=== PATIENT | female | born 1960 | race Caucasian/White ===

== ENCOUNTER 2024-12-17 13:27 | Inpatient (IN) ==
--- NOTE | 2024-12-17 14:06 | XRay Report ---
XR chest 1V portable CLINICAL HISTORY: Chest pain, nonspecific COMPARISON STUDY: 06/19/2023 FINDINGS: Heart size and pulmonary vasculature are normal. No effusion, consolidation, or pneumothora x. IMPRESSION: No acute findings. ACT 112: Negative or not required by law. Electronically signed by: Jonel Garrett M.D. 12/17/2024 2:05 PM
[2024-12-17 14:19] LABS: Basophils # (auto) 0.08 K/uL (0.00-0.20); Basophils % (auto) 0.5 %; Eosinophils # (auto) 0.01 K/uL (0.00-0.50); Eosinophils % (auto) 0.1 %; Hematocrit (blood only) 43.3 % (37.0-47.0); Hemoglobin 15.3 g/dl (12.0-16.0); Immature Granulocytes # (auto) 0.09 K/uL (0.01-0.20); Immature Granulocytes % (auto) 0.6 %; Lymphocytes # (auto) 1.25 K/uL (1.20-3.40); Lymphocytes % (auto) 8.2 %; Mean Corpuscular Hemoglobin 32.1 pg (25.0-34.0); Mean Corpuscular Hgb Conc 35.3 g/dL (32.0-36.0); Mean Platelet Volume 8.2 fL (9.4-12.4); Monocytes # (auto) 0.96 K/uL (0.11-0.59); Monocytes % (auto) 6.3 %; Neutrophils # (auto) 12.93 K/uL (1.40-6.50); Neutrophils % (auto) 84.3 %; Platelet Count 289 K/uL (130-400); RDW Coefficient of Variation 13.1 % (11.5-14.5); Red Blood Count 4.76 M/uL (4.20-5.40); White Blood Count 15.32 K/ul (4.8-10.8)
--- NOTE | 2024-12-17 14:23 | Emergency Department Note ---
Impression & Plan Acute hypoxemic respiratory failure, Community acquired pneumonia, Leucocytosis ED Provider Note HISTORY OF PRESENT ILLNESS: Patient is a 64-year-old female presenting with chest pain and shortness of breath. Patient reports that yesterday she started having a dull aching pain in her left lateral chest. Reports that she felt slightly more short of breath than normal starting yesterday. Today, she woke up and states that her pain in her left lateral chest was significantly worse. She reports that it hurts when she tries to take a deep breath. She called her daughter who took her to [facility] urgent care and they called 911 to have the patient transferred to the emergency department. Patient does not wear any supplemental oxygen at baseline. Denies any recent fevers. She reports a history of COPD but states that her cough is not any worse than normal. Denies any recent fevers. Denies any DVT or PE history. She is not on any anticoagulation or antiplatelet therapy. Patient reportedly had saturations of 82% at [facility] urgent care. Patient reportedly was given IV Solu-Medrol en route with EMS and given 2 breathing treatments prehospital. ROS: as above PHYSICAL EXAM: Constitutional: Patient appears in no acute distress. HENT: Head: Normocephalic and atraumatic. Eyes: EOMI, PERRL Mouth/Throat: Mucous membranes moist. Neck: Trachea midline. Neck supple. Cardiovascular: Tachycardic with regular rhythm. No murmurs, rubs or gallops. Intact distal pulses. Pulmonary/Chest: No respiratory distress. Breath sounds clear and equal bilaterally. Slight expiratory wheezes bilaterally in the anterior lung wren. Patient has some shunted breathing. Noted to have increased work of breathing. Abdominal: Abdomen soft, no tenderness, rebound or guarding. Musculoskeletal: No edema, tenderness or deformity noted. Skin: Warm and dry. No rash, erythema, pallor or cyanosis Psychiatric: Appropriate mood and affect for situation. Neurological: Alert and keenly responsive. CN II-XII grossly intact, moving all extremities equally and fully. MDM: - Vitals signs showed hypertension and tachycardia. - History obtained via patient. History as above. - Chronic conditions affecting care: COPD - Differential diagnoses include, but are not limited to: Congestive heart failure; acute coronary syndrome; COPD/asthma exacerbation; pulmonary edema; pulmonary embolism; pneumonia; pneumothorax; viral syndrome - Order placed for continuous cardiac monitoring. At this time, monitor showed rate of 112 bpm with normal sinus rhythm, per my interpretation. - External medical records reviewed. Convenient care note from [employer] system dated today was reviewed. Patient was noted to have saturations of 82% on room air was placed on 2L nasal cannula. She was noted to be tachycardic from 120 to 130 bpm on their arrival. EMS was called for transport. - EKG image interpreted by myself showed normal sinus rhythm. Rate 117 bpm. QT 318. No acute ischemic changes. - Laboratory workup interpreted by myself showed leukocytosis (WBC 15.32); normal PT/INR; stable electrolytes; normal troponin; normal AST/ALT; normal lipase - CXR image reviewed by myself is new for pneumonia, per my interpretation. - Patient given hour long duoneb treatment in ER given her continued wheezing and increased work of breathing. - CT PE negative for PE, but noted to have what looks like early pneumonia in the right upper lobe. - IV rocephin and azithromycin ordered for antibiotic coverage. - Given the patient's new oxygen requirement in the setting of her early pneumonia, will admit to hospitalist service. - Discussion was had with case packer about patient's case and need for admission - Hospitalist consulted for admission - [facility] for further evaluation and management. ASSESSMENT AND PLAN: Diagnosis: acute hypoxic respiratory failure; community acquired pneumonia; leukocytosis Plan: admit Past Med/Surg History Problem List (Updated 12/17/24 @ 15:34 by Megha Thompson MD) Leucocytosis (Acute) Community acquired pneumonia (Acute) Acute hypoxemic respiratory failure (Acute) COVID-19 (Acute) Altered mental status (Acute 12/02/13) Hip pain (Acute) Medical History Current every day smoker Surgical History No significant past surgical history Social History Smoking Status: Current every day smoker Tobacco Type: Cigarettes Preferred Language: Turkish marital status: current occupational status: employed Feels Safe at Home: Yes Allergies Allergies Allergy/AdvReac Type Severity Reaction Status Date / Time No Known Allergies Allergy Unverified 06/19/23 20:24 Home Meds Home Medications Medication Instructions Recorded Confirmed ascorbic acid (vitamin C) 500 mg 500 mg PO DAILY 06/19/23 06/19/23 tablet (Vitamin C) cholecalciferol (vitamin D3) 50 50 mcg PO DAILY 06/19/23 06/19/23 mcg (2,000 unit) tablet (Vitamin D3) Previous Rx's Medication Instructions Recorded albuterol sulfate 90 mcg/actuation 2 puffs inhalation QID PRN 12/11/20 aerosol inhaler (Ventolin HFA) shortness of breath or wheezing #8.5 grams dexamethasone 6 mg tablet 6 mg PO DAILY #10 tabs 06/20/23 Results & Data (ED) Vital Signs Vital Signs - 24 hr 12/17/24 13:39 12/17/24 13:43 12/17/24 14:00 Temperature 37.1 C Temperature Source Oral Pulse Rate 120 H 116 H 118 H Pulse Rate [Right Finger] Pulse Rate from SpO2 Sensor 118 H Pulse Rhythm Pulse Strength [Right Finger] Respiratory Rate 24 18 Respiratory Effort / Characteristics Spontaneous Labored Respiratory Depth Respiratory Pattern Rapid/Shallow Blood Pressure 173/94 H 156/92 H Blood Pressure [Right Arm] Blood Pressure Mean 120 113 Blood Pressure Mean [Right Arm] Pulse Oximetry 93 95 Oxygen Delivery Method Room Air Nasal Cannula Oxygen Flow Rate 2 Sepsis Recent Fever Within 48 Hours No Sepsis New/Unexplained Change in Mental Status No Sepsis Action Taken by Nursing Physician Notified 12/17/24 14:04 12/17/24 14:04 12/17/24 14:04 Temperature Temperature Source Pulse Rate 115 H Pulse Rate [Right Finger] Pulse Rate from SpO2 Sensor Pulse Rhythm Regular Pulse Strength [Right Finger] Respiratory Rate 20 Respiratory Effort / Characteristics Spontaneous Labored Respiratory Depth Normal Respiratory Pattern Regular Blood Pressure Blood Pressure [Right Arm] Blood Pressure Mean Blood Pressure Mean [Right Arm] Pulse Oximetry 94 94 Oxygen Delivery Method Nasal Cannula Nasal Cannula Nasal Cannula Oxygen Flow Rate 2 2 2 Sepsis Recent Fever Within 48 Hours Sepsis New/Unexplained Change in Mental Status Sepsis Action Taken by Nursing 12/17/24 14:30 12/17/24 15:15 12/17/24 15:20 Temperature Temperature Source Pulse Rate 113 H 113 H Pulse Rate [Right Finger] 108 H Pulse Rate from SpO2 Sensor 113 H Pulse Rhythm Pulse Strength [Right Finger] Respiratory Rate 18 22 20 Respiratory Effort / Characteristics Spontaneous Short of Breath Respiratory Depth Respiratory Pattern Blood Pressure 151/93 H Blood Pressure [Right Arm] Blood Pressure Mean 112 Blood Pressure Mean [Right Arm] Pulse Oximetry 93 94 94 Oxygen Delivery Method Room Air Nasal Cannula Nasal Cannula Oxygen Flow Rate 2 2 Sepsis Recent Fever Within 48 Hours Sepsis New/Unexplained Change in Mental Status Sepsis Action Taken by Nursing 12/17/24 15:42 Temperature Temperature Source Pulse Rate Pulse Rate [Right Finger] 115 H Pulse Rate from SpO2 Sensor Pulse Rhythm Pulse Strength [Right Finger] Normal Respiratory Rate 18 Respiratory Effort / Characteristics Non-Labored Spontaneous Respiratory Depth Normal Respiratory Pattern Blood Pressure Blood Pressure [Right Arm] 141/101 H Blood Pressure Mean Blood Pressure Mean [Right Arm] 114 Pulse Oximetry 97 Oxygen Delivery Method Room Air Oxygen Flow Rate Sepsis Recent Fever Within 48 Hours Sepsis New/Unexplained Change in Mental Status Sepsis Action Taken by Nursing Laboratory Data 12/17/24 13:45 12/17/24 13:45 Lab Results 12/17/24 Range/Units 13:45 WBC 15.32 H (4.8-10.8) K/ul RBC 4.76 (4.20-5.40) M/uL Hgb 15.3 (12.0-16.0) g/dl Hct 43.3 (37.0-47.0) % MCV 91.0 (80.0-100.0) fL MCH 32.1 (25.0-34.0) pg MCHC 35.3 (32.0-36.0) g/dL RDW Std Deviation 44.0 (36.4-46.3) fL RDW Coeff of Luis 13.1 (11.5-14.5) % Plt Count 289 (130-400) K/uL MPV 8.2 L (9.4-12.4) fL Immature Gran % (Auto) 0.6 % Neut % (Auto) 84.3 % Lymph % (Auto) 8.2 % Williams % (Auto) 6.3 % Eos % (Auto) 0.1 % Baso % (Auto) 0.5 % Neut # (Auto) 12.93 H (1.40-6.50) K/uL Lymph # (Auto) 1.25 (1.20-3.40) K/uL Williams # (Auto) 0.96 H (0.11-0.59) K/uL Eos # (Auto) 0.01 (0.00-0.50) K/uL Baso # (Auto) 0.08 (0.00-0.20) K/uL Immature Gran # (Auto) 0.09 (0.01-0.20) K/uL PT 10.1 (9.0-12.0) Seconds INR 0.9 (0.9-1.1) Sodium 137 (136-145) mmol/L Potassium 4.0 (3.5-5.1) mmol/L Chloride 100 (98-107) mmol/L Carbon Dioxide 27 (21-32) mmol/L Anion Gap 10 (3-11) BUN 13 (6-23) mg/dl Creatinine 0.56 L (0.6-1.2) mg/dl Est Cr Clr Drug Dosing 90.1 ml/min eGFR 103.12 BUN/Creatinine Ratio 23.2 H (10-20) Glucose 108 H (70-99(Fasting)) mg/dl Calcium 9.1 (8.6-10.3) mg/dl Total Bilirubin 0.6 (0.2-1.0) mg/dl AST 20 (13-39) U/L ALT 13 (7-52) U/L Alkaline Phosphatase 79 (34-104) U/L Troponin I High Sens 5.1 (0-14) pg/ml Total Protein 7.7 (6.0-8.3) gm/dl Albumin 4.7 (3.4-5.0) gm/dl Globulin 3.0 (2.5-4.0) gm/dl Albumin/Globulin Ratio 1.6 (0.9-2) Lipase 21 (11-82) U/L Administered Medications Ceftriaxone Sodium (Rocephin) 2,000 mg in 50 mls @ 100 mls/hr IV NOW STA Stop: 12/17/24 15:59 Last Admin: 12/17/24 15:39 Dose: 100 mls/hr Documented By: WESLEY Discontinued Medications Albuterol (Albut/Ipratrop 3mg/0.5mg Neb 3 Ml Vial) 12 ml NEB ONE ONE; Protocol Stop: 12/17/24 14:45 Last Admin: 12/17/24 15:18 Dose: 12 ml Documented By: DONNELL Azithromycin (Azithromycin 250 Mg Tab) 500 mg PO NOW ONE Stop: 12/17/24 15:31 Last Admin: 12/17/24 15:38 Dose: 500 mg Documented By: WESLEY Ioversol (Optiray 320 125ml) 89 ml IV ONCE ONE Stop: 12/17/24 15:08 Last Admin: 12/17/24 15:07 Dose: 89 ml Documented By: PLW Imaging Data Radiologist's Impression: Chest CTA 12/17/24 13:43 CT angio chest PE protocol CT DOSE: 394.29 mGy.cm HISTORY: PE. TECHNIQUE: Multiple CTA images of the chest were obtained after the intravenous administration of 90 ml Optiray. Coronal and sagittal MIPS were obtained from the axial data set and were submitted for review. All measurements were obtained according to NASCET criteria. A dose lowering technique was utilized adhering to the principles of ALARA. COMPARISON STUDY: 06/19/2023 FINDINGS: There are mild secretions in a few lower lobe bronchi bilaterally. There is mild emphysema. There is no pulmonary consolidation or pleural effusion. There is an interval small area of patchy groundglass opacity anterior medial right upper lobe with morphology consistent with a small area of early pneumonia. No enlarged adenopathy. No pericardial effusion. There are coronary artery and aortic calcifications. No thoracic aortic dissection or aneurysm. No pulmonary embolism. There are mild thoracic spine degenerative changes. IMPRESSION: 1. No pulmonary embolism seen. 2. Small area of early pneumonia at the right upper lobe. ACT 112: Negative or not required by law. The above report was generated using voice recognition software. It may contain grammatical, syntax or spelling errors. Electronically signed by: Jonel Garrett M.D. 12/17/2024 3:26 PM Chest X-Ray 12/17/24 13:44 XR chest 1V portable CLINICAL HISTORY: Chest pain, nonspecific COMPARISON STUDY: 06/19/2023 FINDINGS: Heart size and pulmonary vasculature are normal. No effusion, consolidation, or pneumothorax. IMPRESSION: No acute findings. ACT 112: Negative or not required by law. Electronically signed by: Jonel Garrett M.D. 12/17/2024 2:05 PM Discharge Plan Visit Data Chief Complaint: Shortness of Breath/Dyspnea Stated Complaint: CHEST PAIN, SOB ED Provider: Megha Thompson Discharge Problem: Acute hypoxemic respiratory failure, Community acquired pneumonia, Leucocytosis Condition: Fair Forms Stand Alone Forms: [facility] [employer] Prescriptions Prescriptions: No Action albuterol sulfate [Ventolin HFA] 90 mcg/actuation HFA aerosol inhaler 2 puffs INH QID PRN (Reason: shortness of breath or wheezing) Qty: 8.5 0RF ascorbic acid (vitamin C) [Vitamin C] 500 mg Tablet 500 mg PO DAILY cholecalciferol (vitamin D3) [Vitamin D3] 50 mcg (2,000 unit) Tablet 50 mcg PO DAILY dexamethasone 6 mg tablet 6 mg PO DAILY Qty: 10 0RF Referrals Referrals: Jose Salvador MD [Primary Care Provider] -
[2024-12-17 14:35] LABS: Albumin Globulin Ratio 1.6 (0.9-2); Albumin Level 4.7 gm/dl (3.4-5.0); BUN Creatinine Ratio 23.2 (10-20); Bilirubin,Total 0.6 mg/dl (0.2-1.0); Calcium 9.1 mg/dl (8.6-10.3); Creatinine Clr Calc Pharmacy 90.1 ml/min; Total Protein 7.7 gm/dl (6.0-8.3)
[2024-12-17 14:39] LABS: Troponin I High Sensitivity 5.1 pg/ml (0-14)
[2024-12-17 14:46] LABS: INR 0.9 (0.9-1.1); Prothrombin Time 10.1 Seconds (9.0-12.0)
[2024-12-17] MEDS: OPTIRAY 320 125ml IV ONE (15:07)
[2024-12-17] MEDS: ALBUT/IPRATROP 3MG/0.5MG NEB 3 ML VIAL NEB ONE (15:18)
--- NOTE | 2024-12-17 15:27 | CT Scan Report ---
CT angio chest PE protocol CT DOSE: 394.29 mGy.cm HISTORY: PE. TECHNIQUE: Multiple CTA images of the chest were obtained after the intravenous administration of 90 ml Optiray. Coronal and sagittal MIPS were obtained from the axial data set and were submitted for r eview. All measurements were obtained according to NASCET criteria. A dose lowering technique was ut ilized adhering to the principles of ALARA. COMPARISON STUDY: 06/19/2023 FINDINGS: There are mild secretions in a few lower lobe bronchi bilaterally. There is mild emphysema. There is no pulmonary consolidation or pleural effusion. There is an interval small area of patchy g roundglass opacity anterior medial right upper lobe with morphology consistent with a small area of e gerardo pneumonia. No enlarged adenopathy. No pericardial effusion. There are coronary artery and aortic calcifications. No thoracic aortic dissection or aneurysm. No pulmonary embolism. There are mild tho racic spine degenerative changes. IMPRESSION: 1. No pulmonary embolism seen. 2. Small area of early pneumonia at the right upper lobe. ACT 112: Negative or not required by law. The above report was generated using voice recognition software. It may contain grammatical, syntax o r spelling errors. Electronically signed by: Jonel Garrett M.D. 12/17/2024 3:26 PM
[2024-12-17] MEDS: AZITHROMYCIN 250 MG TAB PO ONE (15:38)
[2024-12-17] MEDS: cefTRIAXone SODIUM 2,000 MG/50 ML BAG IV STA (15:39)
--- NOTE | 2024-12-17 15:55 | History & Physical Report ---
Date of Service December 17, 2024 Assessment & Plan (1) Hypoxia: (2) Community acquired pneumonia: (3) COPD exacerbation: (4) Sepsis: (5) Current every day smoker: Plan This is a 64 yr old F who has a significant PMH of COPD and prediabetes who presents to ED 2/2 worsening SOB and Left sided chest pain. #Hypoxia - pt was 82% at urgent care, currently sating normally in ED after multiple rounds of nebulizer treatments #Community acquired PNA #COPD Exac #Sepsis - meets 2/2 leukocytosis and tachycardia admit to [facility] tele CTA showing concern for developing RUL PNA Continue ceftriaxone 2g daily and Azithromycin continue 250mg daily for additional 4 days IV methylprednisolone 40mg BID Levalbuterol/ipratropium q6hr (pt tachycardic) muccinex, flutter valve, ISP budesonide nebs BID, continue trelegy would recommend pt establish with pulmonary given severity of COPD obtain resp biofire #Left sided chest pain suspect msk as sx reproducible lidocaine patch, tylenol prn repeat trop for completeness, if trop rises would check echo #Tobacco abuse nicotine patch ordered encourage smoking cessation DVT ppx: SQ Lovenox FULL CODE PCP: Jose Salvador MD Dispo: admit to [facility] tele Pt was seen and examined in collaboration with Dr. Steward, please see addendum I spent a total of 50 minutes coordinating, documenting and providing care for this patient excluding time spent in the performance of separately billed services or time spent by another provider/QHP. History of Present Illness Chief Complaint: SOB x 1 day. Primary Care Provider: Jose Salvador MD This is a 64 yr old F who presents to the ED 2/2 worsening SOB. Her daughter is at bedside who helps elicit history. She has a significant PMH of COPD and tobac co abuse. She initially went to urgent care 2/2 L sided chest pain. The pain is located on the left side. Her sx started yesterday a little bit, but this morning he pain was severe. She had pain with deep breathing and at rest. She also has a cough. SHe is productive white/clear sputum. When she got urgent care her oxygen saturations were in the 80s. Daughter reports when she picked her up she was extremely short of breath. No recent illness or travel. Pt lives alone. She denies any f/c/s, dizziness, lightheaded, hemoptysis, n/v/d, abd pain, change in her bowel/urinary habits. SHe does feel lightheaded when she can't catch her breath. She denies any hx of CAD. She is still having chest pain on the left side and its constant. She describes it as constant. Currently she is smoking 1/2 ppd. Allergies Allergy/AdvReac Type Severity Reaction Status Date / Time No Known Allergies Allergy Unverified 12/17/24 15:55 Home Medications Medication Instructions Recorded Confirmed Type ascorbic acid (vitamin C) 500 mg 500 mg PO DAILY 06/19/23 12/17/24 History tablet (Vitamin C) cholecalciferol (vitamin D3) 50 50 mcg PO DAILY 06/19/23 12/17/24 History mcg (2,000 unit) tablet (Vitamin D3) albuterol sulfate 90 mcg/actuation 2 puffs inhalation Q4 PRN DYSPNEA 12/17/24 12/17/24 History aerosol inhaler (Ventolin HFA) OR WHEEZING fluticasone fur. 100 mcg-umeclid 1 inh inhalation QAM 12/17/24 12/17/24 History 62.5 mcg-vilant 25 mcg inhalat.powder (Trelegy Ellipta) ibuprofen 200 mg capsule 600 mg PO Q6H PRN DIRECTED 12/17/24 12/17/24 History Past Med/Surg History Problem List (Updated 12/17/24 @ 16:17 by Siobhan Calle PA-C) Sepsis COPD exacerbation Hypoxia Leucocytosis (Acute) Community acquired pneumonia (Acute) Acute hypoxemic respiratory failure (Acute) COVID-19 (Acute) Altered mental status (Acute 12/02/13) Hip pain (Acute) Medical History Pre-diabetes COPD (chronic obstructive pulmonary disease) Current every day smoker Surgical History No significant past surgical history Family History (Updated 12/17/24 @ 15:54 by Siobhan Calle PA-C) Mother Cervical cancer Grandmother (Maternal) Stroke Diabetes Social History Smoking Status: Current every day smoker Tobacco Type: Cigarettes Preferred Language: Croatian marital status: current occupational status: employed Feels Safe at Home: Yes Review of Systems Review of Systems: All systems reviewed & are unremarkable except as noted in HPI & below Physical Exam Physical Exam: please refer to Dr. Steward addendum for physical exam findings Results & Data Results & Data Vital Signs (Past 12 Hours) Vital Signs Temp Pulse Pulse Resp BP BP Pulse Ox 12/17/24 15:42 115 H 18 141/101 H 97 12/17/24 15:20 108 H 20 94 12/17/24 15:15 113 H 22 94 12/17/24 14:30 113 H 18 151/93 H 93 12/17/24 14:04 94 12/17/24 14:04 12/17/24 14:04 115 H 20 94 12/17/24 14:00 118 H 18 156/92 H 95 12/17/24 13:43 116 H 12/17/24 13:39 37.1 C 120 H 24 173/94 H 93 O2 Del Method O2 Flow Rate 12/17/24 15:42 Room Air 12/17/24 15:20 Nasal Cannula 2 12/17/24 15:15 Nasal Cannula 2 12/17/24 14:30 Room Air 12/17/24 14:04 Nasal Cannula 2 12/17/24 14:04 Nasal Cannula 2 12/17/24 14:04 Nasal Cannula 2 12/17/24 14:00 Nasal Cannula 2 12/17/24 13:43 12/17/24 13:39 Room Air Laboratory Results I have independently reviewed and interpreted patient's admitting labs including CBC, CMP, PT/INR, mag and troponin. Diagnostic Findings Chest CTA 12/17/24 13:43 CT angio chest PE protocol CT DOSE: 394.29 mGy.cm HISTORY: PE. TECHNIQUE: Multiple CTA images of the chest were obtained after the intravenous administration of 90 ml Optiray. Coronal and sagittal MIPS were obtained from the axial data set and were submitted for review. All measurements were obtained according to NASCET criteria. A dose lowering technique was utilized adhering to the principles of ALARA. COMPARISON STUDY: 06/19/2023 FINDINGS: There are mild secretions in a few lower lobe bronchi bilaterally. There is mild emphysema. There is no pulmonary consolidation or pleural effusion. There is an interval small area of patchy groundglass opacity anterior medial right upper lobe with morphology consistent with a small area of early pneumonia. No enlarged adenopathy. No pericardial effusion. There are coronary artery and aortic calcifications. No thoracic aortic dissection or aneurysm. No pulmonary embolism. There are mild thoracic spine degenerative changes. IMPRESSION: 1. No pulmonary embolism seen. 2. Small area of early pneumonia at the right upper lobe. ACT 112: Negative or not required by law. The above report was generated using voice recognition software. It may contain grammatical, syntax or spelling errors. Electronically signed by: Jonel Garrett M.D. 12/17/2024 3:26 PM Chest X-Ray 12/17/24 13:44 XR chest 1V portable CLINICAL HISTORY: Chest pain, nonspecific COMPARISON STUDY: 06/19/2023 FINDINGS: Heart size and pulmonary vasculature are normal. No effusion, consolidation, or pneumothorax. IMPRESSION: No acute findings. ACT 112: Negative or not required by law. Electronically signed by: Jonel Garrett M.D. 12/17/2024 2:05 PM Medications Administered Medication List Discontinued Medications Albuterol (Albut/Ipratrop 3mg/0.5mg Neb 3 Ml Vial) 12 ml NEB ONE ONE; Protocol Stop: 12/17/24 14:45 Last Admin: 12/17/24 15:18 Dose: 12 ml Documented By: DONNELL Azithromycin (Azithromycin 250 Mg Tab) 500 mg PO NOW ONE Stop: 12/17/24 15:31 Last Admin: 12/17/24 15:38 Dose: 500 mg Documented By: WESLEY Ceftriaxone Sodium (Rocephin) 2,000 mg in 50 mls @ 100 mls/hr IV NOW STA Stop: 12/17/24 15:59 Last Admin: 12/17/24 15:39 Dose: 100 mls/hr Documented By: WESLEY Ioversol (Optiray 320 125ml) 89 ml IV ONCE ONE Stop: 12/17/24 15:08 Last Admin: 12/17/24 15:07 Dose: 89 ml Documented By: RABIAW ECG Additional Comments: I have independently reviewed and interpreted patient's admitting EKG which revealed: ST 117 qtc 443ms biatrial enlargement COVID-19 Results Results COVID-19 Adm Lab Results: RBC 4.76 M/uL (4.20-5.40) 12/17/24 WBC 15.32 K/ul (4.8-10.8) H 12/17/24 Hgb 15.3 g/dl (12.0-16.0) 12/17/24 Hct 43.3 % (37.0-47.0) 12/17/24 Plt Count 289 K/uL (130-400) 12/17/24 Neutrophils (%) (Auto) 84.3 % 12/17/24 Lymphocytes (%) (Auto) 8.2 % 12/17/24 Monocytes # (Auto) 0.96 K/uL (0.11-0.59) H 12/17/24 Immature Granulocyte % (Auto) 0.6 % 12/17/24 Neutrophils # (Auto) 12.93 K/uL (1.40-6.50) H 12/17/24 Lymphocytes # (Auto) 1.25 K/uL (1.20-3.40) 12/17/24 Monocytes # (Auto) 0.96 K/uL (0.11-0.59) H 12/17/24 Basophils # (Auto) 0.08 K/uL (0.00-0.20) 12/17/24 Immature Granulocyte # (Auto) 0.09 K/uL (0.01-0.20) 5 Na 137 mmol/L (136-145) 12/17/24 K 4.0 mmol/L (3.5-5.1) 12/17/24 Cl 100 mmol/L (98-107) 12/17/24 CO2 27 mmol/L (21-32) 12/17/24 Anion Gap 10 (3-11) 12/17/24 BUN 13 mg/dl (6-23) 12/17/24 Creatinine 0.56 mg/dl (0.6-1.2) L 12/17/24 BUN/Creatinine Ratio 23.2 (10-20) H 12/17/24 Glucose Level 108 mg/dl (70-99(Fasting)) H 12/17/24 Ca 9.1 mg/dl (8.6-10.3) 12/17/24 Total Bilirubin 0.6 mg/dl (0.2-1.0) 12/17/24 AST/SGOT 20 U/L (13-39) 12/17/24 ALT/SGPT 13 U/L (7-52) 12/17/24 Alkaline Phosphatase 79 U/L (34-104) 12/17/24 Total Protein 7.7 gm/dl (6.0-8.3) 12/17/24 Albumin 4.7 gm/dl (3.4-5.0) 12/17/24 Globulin 3.0 gm/dl (2.5-4.0) 12/17/24 Albumin/Globulin Ratio 1.6 (0.9-2) 12/17/24 INR 0.9 (0.9-1.1) 12/17/24 Adenovirus (PCR) Not Detected (NotDetected) 12/17/24 B. parapertussis DNA (PCR) Not Detected (NotDetected) 01/06 B. pertussis DNA (PCR) Not Detected (NotDetected) 12/17/24 C. pneumoniae DNA (PCR) Not Detected (NotDetected) Coronavirus Type OC43 (PCR) Not Detected (NotDetected) 01/06 Coronavirus Type HKU1 (PCR) Not Detected (NotDetected) 01/06 Coronavirus Type 229E (PCR) Not Detected (NotDetected) 01/06 COVID-19 PCR Not Detected (NotDetected) 12/17/24 Coronavirus Type NL63 (PCR) Not Detected (NotDetected) 01/06 Human Metapneumovirus (PCR) Not Detected (NotDetected) 01/06 Influenza Virus Type A (PCR) Not Detected (NotDetected) Influenza Virus Type B (PCR) Not Detected (NotDetected) M. pneumoniae (PCR) Not Detected (NotDetected) 12/17/24 Parainfluenza Type 1 (PCR) Not Detected (NotDetected) 01/06 Parainfluenza Type 2 (PCR) Not Detected (NotDetected) 01/06 Parainfluenza Type 3 (PCR) Not Detected (NotDetected) 01/06 Parainfluenza Type 4 (PCR) Not Detected (NotDetected) 01/06 RSV (PCR) Not Detected (NotDetected) 12/17/24 Enterovirus/Rhinovirus (PCR) Not Detected (NotDetected) Chest X-Ray 12/17/24 Code Status & VTE Plan Code Status FULL CODE VTE Prophylaxis Plan VTE Prophylaxis will be ordered: Yes Supervising Physician Co-Signing Physician Notes Patient is a 64-year-old female with history of COPD, tobacco use disorder, prediabetes and other medical problems presents with history of worsening shortness of breath, left-sided chest pain sharp, nonradiating, associated with cough and occasional sputum which has been gradually worsening since 2 to 3 days duration. She was found to be hypoxic in 80s at urgent care and was advised to go to ED for further evaluation. Patient admits to continue to smoke about half pack per day. She is on Trelegy for COPD which she has been using. Please review HPI for complete details of presentation. I personally reviewed blood work and imaging studies. Noted leukocytosis 15.3 2K, troponin x 2 negative. BioFire negative. Chest CTA showed no PE, showed findings suggestive of right upper lobe pneumonia. Physical Exam: Vitals signs as noted above General Appearance:Moderately built and nourished, no apparent distress Head: normocephalic, Atraumatic Eyes: normal inspection, EOMI Neck: supple, Trachea midline Respiratory/Chest: Decreased breath sounds, b/l wheezing, rhonchi, No accessory muscle use Cardiovascular: S1, S2, No murmur, tachycardia Abdomen/GI:Soft, Non tender, Bowel sounds present Extremities/Musculoskeletal:normal inspection, no edema Neurologic/Psych:AAOX3, grossly no focal neurological deficits Skin: normal color, warm Acute respiratory failure with hypoxia Community-acquired pneumonia Acute COPD exacerbation Sepsis secondary to above Ongoing tobacco use disorder Sinus tachycardia Agree with IV antibiotics, steroids, nebs Supplemental oxygen as needed to keep saturations 88 to 92% 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 I have reviewed t he advanced practitioner's documentation on the date of service referred in note and agree with plan. Patient's care is coordinated with Siobhan Calle PA-C. Please refer to the documentation above for details of patient's presentation and for discussion of other issues. I spent a total [id number] coordinating, documenting, and providing care for this patient excluding time spent in the performance of separately billed services or time spent by another provider/QHP.
[2024-12-17] MEDS: LIDOCAINE 5% 1 PATCH TD SCH (16:21)
[2024-12-17] MEDS: NICOTINE 14 MG/24 HR PATCH TD SCH (16:21)
[2024-12-17] MEDS: KETOROLAC TROMETHAMINE 15 MG/ML VIAL IV ONE (16:21)
[2024-12-17] MEDS: methylPREDNISolone 125 MG/2 ML VIAL IV STA (16:31)
[2024-12-17 17:00] LABS: Appearance Urine Clear (Clear); Bacteria Urine Automated None Seen (None Seen); Bilirubin Urine Negative (Negative); Blood Urine 2+ (Negative); Cast Urine Automated 0-2 /lpf (0-2); Color Urine Yellow; Epithelial Cell Urine Auto 0-2 /hpf (0-2); Glucose Urine UA Negative (Negative); Ketones Urine 1+ (Negative); Leukocyte Esterase Urine Negative (Negative); Nitrite Urine Negative (Negative); Protein Urine Negative (Negative); Specific Gravity Urine > 1.045 (1.000-1.030); Urobilinogen Urine Negative (Negative); WBC Urine Automated 0-5 /hpf (0-5); pH Urine 5.5 (4.5-7.5)
[2024-12-17 17:05] LABS: Adenovirus PCR Not Detected (NotDetected); Bordetella parapertussis PCR Not Detected (NotDetected); Bordetella pertussis PCR Not Detected (NotDetected); Chlamydia pneumoniae PCR Not Detected (NotDetected); Coronavirus 229E PCR Not Detected (NotDetected); Coronavirus CoV-2 (COVID19)PCR Not Detected (NotDetected); Coronavirus HKU1 PCR Not Detected (NotDetected); Coronavirus NL63 PCR Not Detected (NotDetected); Coronavirus OC43PCR Not Detected (NotDetected); Human Metapneumovirus PCR Not Detected (NotDetected); Influenza A PCR Not Detected (NotDetected); Influenza B PCR Not Detected (NotDetected); Mycoplasma pneumoniae PCR Not Detected (NotDetected); Parainfluenza Virus 1 PCR Not Detected (NotDetected); Parainfluenza Virus 2 PCR Not Detected (NotDetected); Parainfluenza Virus 3 PCR Not Detected (NotDetected); Parainfluenza Virus 4 PCR Not Detected (NotDetected); Respiratory Syncytial VirusPCR Not Detected (NotDetected); Rhinovirus/Enterovirus PCR Not Detected (NotDetected)
[2024-12-17] MEDS ORDERED: MELATONIN 3 MG TAB PO PRN (18:05)
[2024-12-17] MEDS ORDERED: POLYETHYLENE (MIRALAX) 17 GM PACK PO PRN (18:05)
[2024-12-17] MEDS ORDERED: FAMOTIDINE 20 MG TAB PO PRN (18:05)
[2024-12-17] MEDS ORDERED: ONDANSETRON INJ 2 MG/ML 2 ML VIAL IV PRN (18:05)
[2024-12-17] MEDS ORDERED: LABETALOL HCL IV 5 MG/ML 20ML IV PRN (18:05)
[2024-12-17] MEDS: BUDESONIDE 0.5 MG/2 ML VIAL (PULMICORT) NEB SCH (19:39)
[2024-12-17] MEDS: IPRATROPIUM BROMIDE NEB SOLN 0.02% 0.5MG/2.5ML VIAL NEB SCH (19:39)
[2024-12-17] MEDS: LEVALBUTEROL 1.25 MG/3 ML NEB NEB SCH (19:45)
--- OUTSIDE RECORDS SUMMARY | 2024-12-17 20:24 | External Medical Summary | Summary of Care ---
Author Name Unknown Organization [facility] Address [address] [place] [address] Phone [phone] Care Team Providers Care Layout Man Name Role Phone MadeleineJose MD Primary Care Provider [phone] Encounter Details Date Type Department Care Team (Late st Contact Info) Description 10/17/2024 Orders Only PATIENT PORTAL DO NOT DELETE THIS DEPT USED BY [place] [id number] Allergies No known active allergiesdocumented as of this encounter (statuses as of 10/17/2024) Medications Vitamin D Maintenance THERAPY PACK Oral Take by mouth daily. Active Vitamin C 500 MG Oral Capsule Take 500 mg by mouth daily. Active Ibuprofen 200 MG Oral Capsule Take 3 Capsules by mouth every 6 hours as needed. Active Albuterol Sulfate HFA 108 (90 Base) MCG/ACT Inhalation Aerosol SolutionIndicati ons:COPD, severe (HCC) Inhale 2 Puffs by mouth every 4 hours as needed for Dyspnea (wheezing). 54 g 3 5 Active Fluticasone-Umec lidin-Vilant 100-62.5-25 MCG/ACT Aerosol Powder Breath Activated (Trelegy Ellipta)Indicati ons:COPD, severe (HCC) Inhale 1 Puff by mouth in the morning. 60 Blister Dosing Unit 11 5 Active documented as of this encounter (statuses as of 10/17/2024) Active Problems Problem Noted Date Diagnosed Date COPD, severe 10/10/2024 Tobacco use 10/10/2024 Fibrocystic breast 11/09/2012 Female genital symptoms 08/04/1999 Overview (05/16/2017): ICD-10 update of inactive term ABN PAP SMEAR-CERVIX 08/04/1999 Menstruation, irregular 07/21/1999 Endometriosis 07/21/1999 HERPETIC GINGIVOSTOMAT 07/21/1999 Other acne 07/21/1999 documented as of this encounter (statuses as of 10/17/2024) Resolved Problems Problem Noted Date Diagnosed Date Resolved Date ADVANCE DIRECTIVE INFORMATION 11/15/2006 06/18/2024 Overview (11/15/2006): No, Advance Directive brochure given to patient. documented as of this encounter (statuses as of 10/17/2024) Immunizations Name Administration Dates Next Due PPD 06/27/2023,08/28/2019 Pneumococcal Conjugate Vaccine, 20-valent (Prevn ar20) 03/16/2023 Pneumococcal Polysaccharide PPV23 (Pneumovax) Seasonal Influenza Vac., MDV, IM, 0.5 mL (Fluzon e) 06/09/2010 Seasonal Influenza, PF, 6 M & above, IM , (FluLaval or Fluzone) 06/27/2023,08/28/2019 TDAP (age 10 and older)(Boostrix) 04/02/2019 TDAP, Age 7 and older, IM (Adacel) 10/07/2011 Zoster Vaccine Recombinant (Shingrix) 05/17/2023 ,03/16/2023 documented as of this encounter Social History Tobacco Use Types Packs/Day Years Used Date Smoking Tobacco: Every Day Cigarettes 0.5 44 Smokeless Tobacco: Never Alcohol Use Standard Drinks/Week Comments Yes 0 (1 standard drink = 0.6 oz pur e alcohol) occ PHQ-2 Answer Date Recorded PHQ Adult Total Score 0 10/10/2024 Hunger Vital Sign Answer Date Recorded Worried About Running Out of Food in the Last Ye ar Never true 08/28/2019 Ran Out of Food in the Last Year Never true 08/28/2019 Comments No Sex and Gender Information Value Date Recorded Sex Assigned at Not on file Legal Sex Female 5:15 AM EST Gender Identity Not on file Sexual Orientation Not on file 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 on file Not on file Not on file documented as of this encounter Plan of Treatment Upcoming Encounters Date Type Department Care Team (Late st Contact Info) Description 11/13/2024 12:00 PM EDT Imaging Radiology [facility] [place] [address] [place] [phone] 10/11/2025 1:20 PM EST Office Visit [facility] [place] Kyaar Mcfarland [address] [place] [phone] DecemberJose MD [address] [place] [id number] Scheduled Procedures Name Priority Associated Diagnoses Date/Ti me COLONOSCOPY FLEXIBLE PROXIMAL DIAGNOSTIC Recall History of colon polyps Health Maintenance Due Date Last Done Comments DISCUSS TOBACCO CESSATION (REFER TO SMARTSET #2460) 1962 Alpha-1 Antitrypsin 1980 O2 ASSESSMENT COMPLETED IN PAST YEAR FOR COPD 1980 HPV/Co-Test 1992 Fecal Occult Blood Test 12/09/2007 Sigmoidoscopy 12/09/2007 Lung Cancer Screening 2012 Cervical Cancer Screening 04/12/2017 Pap Smear 04/12/2017 04/12/2014, 04/15, 03/26/2009, Additional history exists Mammogram 04/05/2024 04/05/2023, 03/15, 05/29/2016, Additional history exists COVID-19 Vaccine ( season) 2024 Influenza Vaccine (FLU shot) (#1) 2024 06/27/2023, 08/28/2019, 06/09/2010 Cologuard 04/05/2025 04/05/2022, 03/15, 03/29/2022 Depression Screening 10/10/2025 10/10/2024 Colonoscopy 04/27/2027 04/27/2022, 04/27/2022 Colorectal Cancer Screening 04/27/2027 Lipid Panel 03/16/2028 03/16/2023, 04/27/2012 DTap/Tdap Vaccines (3 - Td or Tdap) 04/02/2029 04/02/2019, 10/07/2011, 07/21/1999 Hepatitis B Vaccine Completed 06/29/2000, 01/26/2000, 12/22/1999 RETIRED - COLONOSCOPY-EVERY 5 YRS AGES 18-100 Discontinued 04/27/2022, 04/27/2022 Pneumococcal Vaccine: 50+ Years Completed 03/16/2023, 03/26/2009 Zoster Vaccines Completed 05/17/2023, 03/16/2023 HPV (Gardasil) Vaccine Aged Out No lo nger eligible based on patient's age to complete this topic MENINGOCOCCAL (MENACTRA/MENVEO) Aged Out No longer eligible based on patient's age to complete this topic Meningitis B Vaccine (Bexsero/Trumemba) Aged Out No longer eligible based on patient's age to complete this topic documented as of this encounter Medical Devices Not on filedocumented as of this encounter Care Teams Layout Man Relationship Specialty Start Date End Date December, Jose Remy MD [address] [facility] [place] [id number] PCP - General Family Medicine 06/27/23 documented as of this encounter
--- OUTSIDE RECORDS SUMMARY | 2024-12-17 20:24 | External Medical Summary | Summary of Care ---
Author Name Unknown Organization [facility] Address [address] [place] [address] Phone [phone] Care Team Providers Care Funeral Home Attendant Name Role Phone DecemberJose MD Primary Care Provider [phone] Reason for Visit * Reason Comments Follow Up Med check Encounter Details Date Type Department Care Team ([facility] st Contact Info) Description 10/10/2024 10:40 AM EST Office Visit [facility] [place] [address] [facility] [place] [address] DecemberJose MD [address] [place], [place] [id number] COPD, severe (HCC)*; Tobacco use; Prediabetes; History of tobacco use; Encounter for screening mammogram for malignant neoplasm of breast; Screening for depression; Screening for lipid disorders; Screening for deficiency anemia; Encounter for routine preventive care for patient older than 28 days Allergies No known active allergiesdocumented as of this encounter (statuses as of 10/10/2024) Medications Vitamin D Maintenance THERAPY PACK Oral [...] 60 Blister Dosing Unit 11 5 Active Albuterol Sulfate HFA 108 (90 Base) MCG/ACT Inhalation Aerosol SolutionIndicati ons:Acute URI,Acute bronchitis, antibiotics not indicated INHALE 2 PUFFS BY MOUTH EVERY 4 HOURS NEEDED FOR WHEEZING OR DYSPNEA. 54 g 1 4 10/10/19 25 Discontinu ed(Refill) Anoro Ellipta 62.5-25 MCG/ACT Inhalation Aerosol Powder Breath Activated (umeclidinium-vi lanterol)Indicat ions:COPD, severe (HCC) INHALE 1 PUFF BY MOUTH IN THE MORNING 60 Each 3 4 10/10/19 25 Discontinu ed(Medicat ion/Dose Changed) documented as of this encounter (statuses as of 10/10/2024) Active Problems Problem Noted Date Diagnosed Date COPD, severe 10/10/2024 Tobacco use 10/10/2024 Fibrocystic breast 11/09/2012 Female genital symptoms 08/04/1999 Overview (05/16/2017): ICD-10 update of inactive term ABN PAP SMEAR-CERVIX 08/04/1999 Menstruation, irregular 07/21/1999 Endometriosis 07/21/1999 HERPETIC GINGIVOSTOMAT 07/21/1999 Other acne 07/21/1999 documented as of this encounter (statuses as of 10/10/2024) Resolved Problems Problem Noted Date Diagnosed Date Resolved Date ADVANCE DIRECTIVE INFORMATION 11/15/2006 06/18/2024 Overview (11/15/2006): No, Advance Directive brochure given to patient. 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 on file Not on file Not on file documented as of this encounter Last Filed Vital Signs Vital Sign Reading Time Taken Comments Blood Pressure 136/79 10/10/2024 10:47 AM EST Pulse 58 10/10/2024 10:47 AM EST Temperature 36.9 °C (98.4 °F) 10/10/2024 10:[address] Respiratory Rate 16 10/10/2024 10:47 AM EST Oxygen Saturation - - Inhaled Oxygen Concentration - - Weight 60.3 kg (133 lb) 10/10/2024 10:47 AM EST Height - - Body Mass Index 24.01 08/30/2023 11:34 AM EST documented in this encounter Progress Notes * Jose Salvador MD - 10/10/2024 10:45 AM EST Images from the original note were not included. Subjective Moris Reyes is a 63 year old female that presents for Follow Up (Med check ) History of Present Illness The patient, with COPD, presents for a yearly physical. She has COPD and recently underwent a pulmonary function test, which confirmed the diagnosis. She uses Anoro Ellipta as a daily inhaler but finds it ineffective, preferring her albuterol rescue inhaler for immediate relief. She takes Anoro Ellipta every morning but initially hesitated to continue due to perceived lack of efficacy. She experiences shortness of breath, particularly when climbing stairs, and notes that mornings are challenging. She sometimes wakes up in the middle of the night dueto breathing difficulties and has tried sleeping propped up but prefers her left side. She occasionally uses Mucinex to help with mucus clearance, which she finds helpful. She smokes about half a pack of cigarettes a day, with some variation depending on stress at work. 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. She takes vitamin C, vitamin D, and ibuprofen regularly. No significant mood issues. Objective Vitals: 10/10/24 1047 Temp: 98.4 °F (36.9 °C) Pulse: 58 Resp: 16 BP: 136/79 Physical Exam VITALS: BP- 136/79 CHEST: Wheezing and distance breathing sounds. Physical Exam Vitals reviewed. Constitutional: General: She is not in acute distress. HENT: Nose: No congestion or rhinorrhea. Eyes: General: No scleral icterus. Pupils: Pupils are equal, round, and reactive to light. Cardiovascular: Rate and Rhythm: Normal rate and regular rhythm. Heart sounds: No murmur heard. Pulmonary: Effort: Pulmonary effort is normal. No respiratory distress. Breath sounds: Wheezing and rhonchi present. Abdominal: General: There is no distension. Palpations: Abdomen is soft. Tenderness: There is no abdominal tenderness. Musculoskeletal: Cervical back: Neck supple. Lymphadenopathy: Cervical: No cervical adenopathy. Skin: General: Skin is warm and dry. Findings: No rash. Neurological: General: No focal deficit present. Mental Status: She is alert. I have reviewed the following results: Results DIAGNOSTIC Pulmonary function test: Chronic Obstructive Pulmonary Disease (COPD) Assessment and Plan Assessment & Plan Chronic Obstructive Pulmonary Disease (COPD): Severe COPD confirmed by pulmonary function test. Patient reports better relief with rescue inhaler (Albuterol) compared to Anoro Ellipta. Discussed the importance of daily inhaler for long- term management and prevention of exacerbations. -Discontinue Anoro Ellipta. -Start Trelegy Ellipta (generic if affordable), one inhalation daily. -Continue Albuterol as rescue inhaler. -Consider referral to pulmonology if no improvement with new inhaler. Tobacco Use: Patient continues to smoke approximately half a pack per day. -Encourage smoking cessation. General Health Maintenance: -Order mammogram, last one due in May. -Order low-dose CT scan for lung cancer screening. -Order labs for blood sugar check, last checked in 2012. -Continue Vitamin C, Vitamin D, and occasional Mucinex as needed. -Ensure patient has received flu shot. COPD, severe (HCC) (Primary) - Albuterol Sulfate HFA 108 (90 Base) MCG/ACT Inhalation Aerosol Solution; Inhale 2 Puffs by mouth every 4 hours as needed for Dyspnea (wheezing). - Bclfheodjax-Abenxfzuh-Bxgbqw 100-62.5-25 MCG/ACT Aerosol Powder Breath Activated (Trelegy Ellipta); Inhale 1 Puff by mouth in the morning. Tobacco use Prediabetes - COMPREHENSIVE METABOLIC PANEL; Future; Expected date: 10/10/2024 - HEMOGLOBIN A1C; Future; Expected date: 10/10/2024 History of tobacco use - LUNG CANCER EDU. Encounter for screening mammogram for malignant neoplasm of breast - MAMMOGRAM SCREENING RAMESH BILATERAL; Future; Expected date: 10/10/2024 Screening for depression - DEPRESSION SCREENING PERFORMED Screening for lipid disorders - LIPID PANEL WITH DIRECT LDL IF TG IS HIGH; Future; Expected date: 10/10/2024 Screening for deficiency anemia - CBC; Future; Expected date: 10/10/2024 Encounter for routine preventive care for patient older than 28 days Wrap-Up Follow Up: Return in about 1 year (around 10/10/2025) for yearly physical. | For: yearly physical | Check-out note: Please help schedule yearly physical, lung cancer screening, mammogram. Jose Salvador MD Text in this note was generated using an [employer] documentation service. I discussed the use of a device to record and summarize our discussion today. All persons present during the encounter consented to its use. documented in this encounter Nursing Notes * Tomeka Solorio LPN - 10/10/2024 10:47 AM EST The patient has been properly identified by confirmation of name and date of . Chief Complaint Patient presents with Follow Up Med check documented in this encounter Plan of Treatment Upcoming Encounters Date Type Department Care Team (Late st Contact Info) Description 11/13/2024 12:00 PM EDT Imaging Radiology [address] [place] [phone] 10/11/2025 1:20 PM EST [facility] [address] [phone] December, Jose Remy MD [address] [place] [id number] Scheduled Orders Name Type Priority Associated Diagnoses Orde r Schedule MAMMOGRAM SCREENING RAMESH BILATERAL Medical Imaging Routine Encounter for screening mammogram for malignant neoplasm of breast Expected: 10/10/2024, Expires: 11/07/2025 LIPID PANEL WITH DIRECT LDL IF TG IS HIGH Lab Routine Screening for lipid disorders Expected: 10/10/2024, Expires: 10/10/2025 COMPREHENSIVE METABOLIC PANEL Lab Routine Prediabetes Expected: 10/10/2024 (Approximate), Expires: 10/10/2025 CBC Lab Routine Screening for deficiency anemia Expected: 10/10/2024 (Approximate), Expires: 10/10/2025 HEMOGLOBIN A1C Lab Routine Prediabetes Expected: 10/10/2024 (Approximate), Expires: 10/10/2025 Scheduled Procedures Name Priority Associated Diagnoses Date/Ti me COLONOSCOPY FLEXIBLE PROXIMAL DIAGNOSTIC Recall History of colon polyps Health Maintenance Due Date Last Done Comments DISCUSS TOBACCO CESSATION (REFER TO SMARTSET #[id number]) 1960 Alpha-1 Antitrypsin 1980 O2 ASSESSMENT COMPLETED [...] Not on filedocumented as of this encounter Visit Diagnoses Diagnosis COPD, severe (HCC)- Primary Chronic airway obstruction, not elsewhere classified Tobacco use Tobacco use disorder Prediabetes Other abnormal glucose History of tobacco use Personal history of tobacco use, presenting hazards to health Encounter for screening mammogram for malignant neoplasm of breast Other screening mammogram Screening for depression Screening for lipid disorders Screening for deficiency anemia Screening for other and unspecified deficiency anemia Encounter for routine preventive care for patient older than 28 days documented in this encounter Care Teams Funeral Home Attendant Relationship Specialty Start Date End Date December, Jose Remy MD [address] [id number] PCP - General Family Medicine 06/27/23 documented as of this encounter"
[2024-12-17] MEDS: methylPREDNISolone 40 MG in SYRINGE 0 ML IV SCH (20:29)
[2024-12-17] MEDS: guaiFENesin 600 MG TABCR PO SCH (20:29)
[2024-12-17] MEDS: ENOXAPARIN INJ 40 MG/0.4 ML SYR SQ SCH (20:29)
[2024-12-17] MEDS ORDERED: methylPREDNISolone 125 MG/2 ML VIAL IV SCH (21:00)
[2024-12-18] MEDS: LEVALBUTEROL HCL 0.63 MG/3 ML NEB ONE (00:42)
--- NOTE | 2024-12-18 04:38 | Electrocardiogram Report ---
Test Reason : Blood Pressure : */* mmHG Vent. Rate : 117 BPM Atrial Rate : 117 BPM P-R Int : 152 ms QRS Dur : 78 ms QT Int : 318 ms P-R-T Axes : 85 90 75 degrees QTcB Int : 443 ms Sinus tachycardia Biatrial enlargement Rightward axis Abnormal ECG When compared with ECG of 19-Jun-2023 18:28, No significant change was found Confirmed by Tk Jackson ([id number]) on 12/18/2024 4:37:46 AM Referred By: REFERRED SELF Confirmed By: Tk Jackson
[2024-12-18] MEDS: ACETAMINOPHEN 325 MG TAB PO PRN (06:18)
[2024-12-18 06:28] LABS: Basophils # (auto) 0.02 K/uL (0.00-0.20); Basophils % (auto) 0.2 %; Hematocrit (blood only) 40.6 % (37.0-47.0); Hemoglobin 14.1 g/dl (12.0-16.0); Immature Granulocytes # (auto) 0.05 K/uL (0.01-0.20); Immature Granulocytes % (auto) 0.4 %; Lymphocytes # (auto) 0.71 K/uL (1.20-3.40); Lymphocytes % (auto) 5.5 %; Mean Corpuscular Hemoglobin 31.5 pg (25.0-34.0); Mean Corpuscular Hgb Conc 34.7 g/dL (32.0-36.0); Mean Corpuscular Volume 90.8 fL (80.0-100.0); Mean Platelet Volume 8.2 fL (9.4-12.4); Monocytes # (auto) 0.63 K/uL (0.11-0.59); Monocytes % (auto) 4.9 %; Neutrophils # (auto) 11.46 K/uL (1.40-6.50); Platelet Count 261 K/uL (130-400); RDW Coefficient of Variation 13.2 % (11.5-14.5); RDW Standard Deviation 44.2 fL (36.4-46.3); Red Blood Count 4.47 M/uL (4.20-5.40); White Blood Count 12.87 K/ul (4.8-10.8)
[2024-12-18 06:53] LABS: BUN Creatinine Ratio 29.6 (10-20); Calcium 9.2 mg/dl (8.6-10.3); Creatinine Clr Calc Pharmacy 85.4 ml/min; Magnesium 2.1 mg/dl (1.7-2.4); Potassium 4.3 mmol/L (3.5-5.1)
[2024-12-18] MEDS: AZITHROMYCIN 250 MG TAB PO SCH (08:09)
[2024-12-18] MEDS: ASCORBIC ACID 500 MG TAB PO SCH (08:09)
[2024-12-18] MEDS: CHOLECALCIFEROL 25 MCG (1000 UNITS) TAB PO SCH (08:09)
[2024-12-18] MEDS: UMECLIDINIUM/VILANTEROL 62.5/25MCG 7 PUFFS/INHALER INH SCH (08:12)
[2024-12-18] MEDS: FLUTICASONE FUROATE 200MCG 14 PUFFS/INHALER INH SCH (08:12)
[2024-12-18] MEDS ORDERED: NON-FORMULARY MEDICATION (Fluticasone-Umeclidin-Vilanter [Trelegy Ellipta] 100-62.5-25 mcg INH SCH (09:00)
[2024-12-18] MEDS: cefTRIAXone SODIUM 2,000 MG/50 ML BAG IV SCH (11:19)
[2024-12-18] MEDS ORDERED: IPRATROPIUM BROMIDE NEB SOLN 0.02% 0.5MG/2.5ML VIAL NEB SCH (13:00)
--- NOTE | 2024-12-18 13:03 | Hospitalist Progress Note ---
Date of Service December 18, 2024 Assessment & Plan (1) Hypoxia: (2) Community acquired pneumonia: (3) COPD exacerbation: (4) Sepsis: (5) Current every day smoker: Plan This is a 64 yr old F who has a significant PMH of COPD and prediabetes who presents to ED 2/2 worsening SOB and Left sided chest pain. #Hypoxia - pt was 82% at urgent care, currently sating normally at rest but drops to 85-86% with activity. #Community acquired PNA #COPD Exac #Sepsis - meets 2/2 leukocytosis and tachycardia admitted to [facility] tele CTA showing concern for developing RUL PNA. Resp biofire neg. Continue ceftriaxone 2g daily and Azithromycin continue 250mg daily IV methylprednisolone 40mg BID -- to prednisone daily, wheezing and breath sounds improved. c/w duonebs muccinex, flutter valve, ISP continue trelegy would recommend pt establish with pulmonary given severity of COPD, PFT in 6 weeks of discharge. #Left sided chest pain suspect msk as sx reproducible, trop trends neg. EKG w/ sinus tach. lidocaine patch, tylenol prn #Tobacco abuse: nicotine patch ordered, encourage smoking cessation DVT ppx: SQ Lovenox FULL CODE PCP: Jose Salvador MD Dispo: likely dc robina, consider 2 step step prior to dc. Admission and Anticipated Discharge Date Admission Date: December 17, 2024 Subjective Patient was seen and examined at bedside. Patient was sitting up in chair, on room air, NAD, resting comfortably. Patient reports improving cough, now with clear sputum. Patient reports eating okay, has been afebrile. Patient desaturated to 85-86% while walking in the hallway per RN. Physical Exam Physical Exam: General Appearance: Moderately built and nourished, no apparent distress Head: normocephalic, Atraumatic Eyes: normal inspection, EOMI Neck: supple, Trachea midline Respiratory/Chest: CTA breath sounds, no wheezing, rhonchi, No accessory muscle use Cardiovascular: S1, S2, No murmur, tachycardia Abdomen/GI:Soft, Non tender, Bowel sounds present Extremities/Musculoskeletal:normal inspection, no edema Neurologic/Psych:AAOX3, grossly no focal neurological deficits Skin: normal color, warm Results & Data Results & Data Vital Signs (Past 12 Hours) Vital Signs Temp Pulse Pulse Resp BP Pulse Ox O2 Del Method 12/18/24 11:34 36.3 C L 87 18 149/88 H 92 Room Air 12/18/24 10:13 Room Air 12/18/24 08:22 101 H 20 90 Room Air 12/18/24 08:07 36.5 C 97 H 17 138/82 95 Room Air 12/18/24 07:22 93 H 16 98 Nasal Cannula 12/18/24 05:32 84 12/18/24 03:33 36.8 C 87 18 143/80 H 96 Nasal Cannula O2 Flow Rate 12/18/24 11:34 12/18/24 10:13 12/18/24 08:22 12/18/24 08:07 12/18/24 07:22 2 12/18/24 05:32 12/18/24 03:33 3
[2024-12-18] MEDS: ALBUT/IPRATROP 3MG/0.5MG NEB 3 ML VIAL NEB SCH (13:27)
[2024-12-19 06:43] LABS: Hematocrit (blood only) 37.4 % (37.0-47.0); Mean Corpuscular Hemoglobin 31.9 pg (25.0-34.0); Mean Corpuscular Hgb Conc 34.8 g/dL (32.0-36.0); Mean Corpuscular Volume 91.9 fL (80.0-100.0); Mean Platelet Volume 8.4 fL (9.4-12.4); Platelet Count 224 K/uL (130-400); RDW Coefficient of Variation 13.5 % (11.5-14.5); Red Blood Count 4.07 M/uL (4.20-5.40)
[2024-12-19 07:09] LABS: BUN Creatinine Ratio 39.7 (10-20); Calcium 8.4 mg/dl (8.6-10.3); Creatinine Clr Calc Pharmacy 73.2 ml/min
[2024-12-19] MEDS: predniSONE 20 MG TAB PO SCH (07:49)
[2024-12-19 12:28] VITALS: PULSE 90; RESP 16; TEMP 98.2; O2SAT 93
--- NOTE | 2024-12-19 12:51 | Hospitalist Progress Note ---
Date of Service December 19, 2024 Assessment & Plan (1) Hypoxia: (2) Community acquired pneumonia: (3) COPD exacerbation: (4) Sepsis: (5) Current every day smoker: Plan This is a 64 yr old F who has a significant PMH of COPD and prediabetes who presents to ED 2/2 worsening SOB and Left sided chest pain. #Hypoxia - pt was 82% at urgent care, currently sating normally at rest but drops to 85-86% with activity. #Community acquired PNA #COPD Exac #Sepsis - meets 2/2 leukocytosis and tachycardia Admitted to [facility] tele CTA showing concern for developing RUL PNA. Resp biofire neg. Has been on I/V ceftriaxone 2g daily and Azithromycin continue 250mg daily IV methylprednisolone 40mg BID -- to prednisone daily, wheezing and breath sounds improved. c/w duonebs muccinex, flutter valve, ISP Continue trelegy Would recommend pt establish with pulmonary given severity of COPD, PFT in 6 weeks of discharge. Has been feeling much better without any symptoms at rest She has been saturating normally on room air and passed the 2 steps O2 saturation test She was strongly advised to quit smoking She has been ambulating in the hallway without any difficulties and will be discharged home this afternoon #Left sided chest pain suspect msk as sx reproducible, trop trends neg. EKG w/ sinus tach. lidocaine patch, tylenol prn Denies any more chest pain and/or palpitation and no shortness of breath at rest #Tobacco abuse: nicotine patch ordered, encourage smoking cessation Again stressed on quitting smoking DVT ppx: SQ Lovenox FULL CODE PCP: Jose Salvador MD Dispo: likely dc robina, consider 2 step step prior to dc. Has had 2 steps O2 saturation test and the patient will not need any oxygen on discharge Admission and Anticipated Discharge Date Admission Date: December 17, 2024 Subjective 12/19/2024 The patient was seen and examined in medical telemetry unit She has been feeling much better She is not requiring oxygen at rest and she passed 2 steps O2 saturation test Wants to go home and she will be discharged home this afternoon Review of Systems Review of Systems: All systems reviewed and are unremarkable except as noted below Physical Exam Physical Exam: Sitting on a chair without any acute distress Constitutional: well developed, well nourished and average body habitus; not ill appearing Eyes: PERRL, conjunctivae normal, anicteric sclerae ENMT: external ear and nose normal, oropharynx normal Neck: trachea midline, no thyromegaly Respiratory: no respiratory distress Auscultation: + diminished lung sounds, + crackles ( minimal crackles) and + wheezes ( minimal wheezing) Cardiovascular: Rate/Rhythm: regular rate and regular rhythm; not tachycardic Heart Sounds: normal S1 and normal S2; no murmur Extremities: no edema Gastrointestinal (Abdomen): Inspection/Auscultation: normal bowel sounds; abdomen not distended Percussion/Palpation: abdomen soft; abdomen nontender Musculoskeletal: No acute arthritis involving any of the joint Neurologic: normal touch/pain/proprioception and moves all extremities; no focal motor deficits Psychiatric: A+Ox3, euthymic affect Lymphatic: no cervical or axillary lymphadenopathy Results & Data Results & Data Vital Signs (Past 12 Hours) Vital Signs Temp Pulse Pulse Pulse Pulse Resp Resp 12/19/24 12:27 36.8 C 90 16 12/19/24 11:27 105 H 99 H 20 12/19/24 09:26 12/19/24 07:46 36.3 C L 84 16 12/19/24 07:24 86 12/19/24 07:20 85 18 12/19/24 02:29 36.7 C 80 18 Resp BP BP Pulse Ox Pulse Ox Pulse Ox O2 Del Method 12/19/24 12:27 132/84 93 Room Air 12/19/24 11:27 18 90 94 12/19/24 09:26 Room Air 12/19/24 07:46 119/73 91 Nebulizer 12/19/24 07:24 12/19/24 07:20 90 Room Air 12/19/24 02:29 136/81 93 Room Air Laboratory Results Short CBC 12/19/24 Range/Units 05:47 WBC 11.60 H (4.8-10.8) K/ul Hgb 13.0 (12.0-16.0) g/dl Hct 37.4 (37.0-47.0) % Plt Count 224 (130-400) K/uL BMP 12/19/24 05:47 Sodium 138 Potassium 4.0 Chloride 103 Carbon Dioxide 28 BUN 25 H Creatinine 0.63 Glucose 85 Calcium 8.4 L Medications Administered Current Inpatient Medications Acetaminophen (Acetaminophen 325 Mg Tab) 650 mg PO Q4H PRN PRN Reason: Pain or Fever Stop: 01/16/25 18:04 Last Admin: 12/18/24 14:13 Dose: 650 mg Albuterol (Albut/Ipratrop 3mg/0.5mg Neb 3 Ml Vial) 3 ml NEB Q6R [facility]; Protocol Stop: 01/17/25 12:59 Last Admin: 12/19/24 07:20 Dose: 3 ml Ascorbic Acid (Ascorbic Acid 500 Mg Tab) 500 mg PO DAILY [facility] Stop: 01/17/25 08:59 Last Admin: 12/19/24 07:50 Dose: 500 mg Azithromycin (Azithromycin 250 Mg Tab) 250 mg PO QAM [facility] Stop: 12/22/24 08:59 Last Admin: 12/19/24 07:50 Dose: 250 mg Budesonide (Budesonide 0.5 Mg/2 Ml Vial (Pulmicort)) 0.5 mg NEB BIDR [facility] Stop: 01/16/25 18:59 Last Admin: 12/19/24 07:20 Dose: 0.5 mg Enoxaparin Sodium (Enoxaparin Inj 40 Mg/0.4 Ml Syr) 40 mg SQ HS [facility] Stop: 01/16/25 20:59 Last Admin: 12/18/24 21:19 Dose: 40 mg Famotidine (Famotidine 20 Mg Tab) 20 mg PO DAILY PRN PRN Reason: Heartburn Stop: 01/16/25 18:04 Fluticasone Furoate (Fluticasone Furoate 200mcg 14 Puffs/Inhaler) 1 puffs INH DAILY [facility] Stop: 01/17/25 08:59 Last Admin: 12/19/24 07:51 Dose: 1 puffs Guaifenesin (Guaifenesin 600 Mg Tabcr) 1,200 mg PO Q12 [facility] Stop: 01/16/25 20:59 Last Admin: 12/19/24 07:50 Dose: 1,200 mg Ceftriaxone Sodium (Rocephin) 2,000 mg in 50 mls @ 100 mls/hr IV Q24H [facility] Stop: 12/23/24 11:59 Last Admin: 12/19/24 12:28 Dose: Not Given Labetalol HCl (Labetalol Hcl Iv 5 Mg/Ml 20ml) 5 mg IV Q6H PRN PRN Reason: SBP > 170 or DBP > 110 Stop: 01/16/25 18:04 Lidocaine (Lidocaine 5% 1 Patch) 1 patch TD HS [facility] Stop: 01/16/25 16:14 Last Admin: 12/18/24 21:21 Dose: 1 patch Melatonin (Melatonin 3 Mg Tab) 3 mg PO HS PRN PRN Reason: Sleep Stop: 01/16/25 18:04 Miscellaneous (Remove Nicoderm Patch) 1 each N/A DAILY@0859 [facility] Stop: 01/17/25 08:58 Last Admin: 12/19/24 07:49 Dose: 1 each Miscellaneous (Remove Lidoderm Patch) 1 each N/A DAILY@0900 [facility] Stop: 01/17/25 08:59 Last Admin: 12/19/24 07:51 Dose: 1 each Nicotine (Nicotine 14 Mg/24 Hr Patch) 1 patch TD QAM [facility] Stop: 01/16/25 16:14 Last Admin: 12/19/24 07:50 Dose: 1 patch Ondansetron HCl (Ondansetron Inj 2 Mg/Ml 2 Ml Vial) 4 mg IV Q6H PRN PRN Reason: Nausea Stop: 01/16/25 18:04 Polyethylene Glycol (Polyethylene (Miralax) 17 Gm Pack) 17 gm PO DAILY PRN PRN Reason: Constipation Stop: 01/16/25 18:04 Prednisone (Prednisone 20 Mg Tab) 40 mg PO DAILY [facility] Stop: 12/22/24 09:01 Last Admin: 12/19/24 07:49 Dose: 40 mg Umeclidinium/Vilanterol (Umeclidinium/Vilanterol 62.5/25mcg 7 Puffs/Inhaler) 1 puffs INH DAILY [facility] Stop: 01/17/25 08:59 Last Admin: 12/19/24 07:52 Dose: 1 puffs Vitamin D (Cholecalciferol 25 Mcg (1000 Units) Tab) 50 mcg PO DAILY [facility] Stop: 01/17/25 08:59 Last Admin: 12/19/24 07:50 Dose: 50 mcg
[2024-12-19 13:20] VITALS: BP 136/81
--- NOTE | 2024-12-19 17:12 | Discharge Summary ---
Date of Service December 19, 2024 Admission HPI Per Admitting Provider This is a 64 yr old F who presents to the ED 2/2 worsening SOB. Her daughter is at bedside who helps elicit history. She has a significant PMH of COPD and tobacco abuse. She initially went to urgent care 2/2 L sided chest pain. The pain is located on the left side. Her sx started yesterday a little bit, but this morning he pain was severe. She had pain with deep breathing and at rest. She also has a cough. SHe is productive white/clear sputum. When she got urgent care her oxygen saturations were in the 80s. Daughter reports when she picked her up she was extremely short of breath. No recent illness or travel. Pt lives alone. She denies any f/c/s, dizziness, lightheaded, hemoptysis, n/v/d, abd pain, change in her bowel/urinary habits. SHe does feel lightheaded when she can't catch her breath. She denies any hx of CAD. She is still having chest pain on the left side and its constant. She describes it as constant. Currently she is smoking 1/2 ppd. Admission Exam Per Admitting Provider Vitals signs as noted above General Appearance:Moderately built and nourished, no apparent distress Head: normocephalic, Atraumatic Eyes: normal inspection, EOMI Neck: supple, Trachea midline Respiratory/Chest: Decreased breath sounds, b/l wheezing, rhonchi, No accessory muscle use Cardiovascular: S1, S2, No murmur, tachycardia Abdomen/GI:Soft, Non tender, Bowel sounds present Extremities/Musculoskeletal:normal inspection, no edema Neurologic/Psych:AAOX3, grossly no focal neurological deficits Skin: normal color, warm Principal Diagnosis COPD exacerbation, community-acquired pneumonia Discharge Exam Sitting on a chair without any acute distress Constitutional well developed, well nourished and average body habitus; not ill appearing Eyes PERRL, conjunctivae normal, anicteric sclerae ENMT external ear and nose normal, oropharynx normal Neck trachea midline, no thyromegaly Respiratory no respiratory distress Auscultation: + diminished lung sounds, + crackles ( minimal crackles) and + wheezes ( minimal wheezing) Cardiovascular Rate/Rhythm: regular rate and regular rhythm; not tachycardic Heart Sounds: normal S1 and normal S2; no murmur Extremities: no edema Gastrointestinal (Abdomen) Inspection/Auscultation: normal bowel sounds; abdomen not distended Percussion/Palpation: abdomen soft; abdomen nontender Neurologic normal touch/pain/proprioception and moves all extremities; no focal motor deficits Psychiatric A+Ox3, euthymic affect Lymphatic no cervical or axillary lymphadenopathy Discharge Data Allergies Allergy/AdvReac Type Severity Reaction Status Date / Time No Known Allergies Allergy Unverified 12/17/24 15:55 Consultations 12/17/24 15:47 ED Decision to Admit Stat Ordered Studies 12/17/24 13:43 CT for pulmonary embolism PE [CT angio chest PE protocol] Stat Hospital Course (1) Hypoxia: (2) Community acquired pneumonia: (3) COPD exacerbation: (4) Sepsis: (5) Current every day smoker: Plan This is a 64 yr old F who has a significant PMH of COPD and prediabetes who presents to ED 2/2 worsening SOB and Left sided chest pain. #Hypoxia - pt was 82% at urgent care, currently sating normally at rest but drops to 85-86% with activity. #Community acquired PNA #COPD Exac #Sepsis - meets 2/2 leukocytosis and tachycardia Admitted to [facility] tele CTA showing concern for developing RUL PNA. Resp biofire neg. Has been on I/V ceftriaxone 2g daily and Azithromycin continue 250mg daily IV methylprednisolone 40mg BID -- to prednisone daily, wheezing and breath sound s improved. c/w duonebs muccinex, flutter valve, ISP Continue trelegy Would recommend pt establish with pulmonary given severity of COPD, PFT in 6 weeks of discharge. Has been feeling much better without any symptoms at rest She has been saturating normally on room air and passed the 2 steps O2 saturation test She was strongly advised to quit smoking She has been ambulating in the hallway without any difficulties and will be discharged home this afternoon #Left sided chest pain suspect msk as sx reproducible, trop trends neg. EKG w/ sinus tach. lidocaine patch, tylenol prn Denies any more chest pain and/or palpitation and no shortness of breath at rest #Tobacco abuse: nicotine patch ordered, encourage smoking cessation Again stressed on quitting smoking DVT ppx: SQ Lovenox FULL CODE PCP: Jose Salvador MD Dispo: likely dc robina, consider 2 step step prior to dc. Has had 2 steps O2 saturation test and the patient will not need any oxygen on discharge Total Time Total Time Spent Total Time Spent (In Minutes): 35 minutes Discharge Plan Discharge Items Patient Disposition: Home - Self-Care Reason For Visit: PNEUMONIA Discharge Diagnosis: COPD exacerbation, community-acquired pneumonia Condition on Discharge: Good Activity: Resume your previous activity Non-emergency contact: Primary Care Provider Call non-emergency contact if: you have any medication questions and your symptoms worsen Follow-up/Referrals: Jose Salvador MD [Primary Care Provider] - (Date & Time 12/24/2024 2:00 PM Provider: Jose Salvador MD [facility], [facility] ) Diet: Regular Addtl Attending Provider Instructions: Please take precautions to avoid falls Finish the course of antibiotic and you can try a probiotic [id number] Take your medications as advised You are strongly advised to quit smoking Please keep appointment with your healthcare provider Pending Studies at Discharge: No Stand-Alone Forms: [facility], Pain - Opioid Pain Management, Work/School Release, Smoking Cessation Medications and DC Order Prescriptions: New azithromycin 250 mg Tablet 250 mg PO QAM Qty: 3 0RF nicotine 7 mg/24 hr Patch 24 Hour 1 patch transdermal QAM Qty: 30 0RF prednisone 10 mg tablet 10 mg PO UD Qty: 30 0RF Rx Instructions: 4 p.o. daily for 3 days, 3 p.o. daily for 3 days, 2 p.o. daily for 3 days, 1 p.o. daily for 3 days to finish cefdinir 300 mg capsule 300 mg PO BID 5 Days Qty: 10 0RF Continued ascorbic acid (vitamin C) [Vitamin C] 500 mg Tablet 500 mg PO DAILY cholecalciferol (vitamin D3) [Vitamin D3] 50 mcg (2,000 unit) Tablet 50 mcg PO DAILY Trelegy Ellipta 100-62.5-25 mcg blister with device 1 inh INHALATION QAM albuterol sulfate [Ventolin HFA] 90 mcg/actuation HFA aerosol inhaler 2 puffs INH Q4 PRN (Reason: DYSPNEA OR WHEEZING) ibuprofen 200 mg Capsule 600 mg PO Q6H PRN (Reason: DIRECTED) Discharge Orders: Discharge Order (Routine); Ordered 12/19/24 Ordered By: Saji Chacko Admission Data Admit Date/Time: 12/17/24 15:51 Attending Provider: Saji Chacko Admit Provider: Eliazar Steward Primary Care Provider: Jose Salvador Other Providers: Eliazar Steward; Jos Grant Other Interventions: Discharge Summary Assessment (RN) Last Done: 12/19/24 13:19
== END 2024-12-19 13:30 | disposition home or self-care (01) | DRG 871 ==
LOC: ED 13:27 → SUATTDRO 15:51 → 2N 15:51